=== PATIENT | male | born 1975 | race Caucasian/White ===

== ENCOUNTER 2018-10-22 06:13 | Day surgery (SDC) | payer BC ==
[~2018-10-22] VITALS: Ht 175.3 cm; Wt 78.2 kg
[2018-10-22 06:54] VITALS: BP 129/64
[2018-10-22] MEDS ORDERED: B NATURAL PO (07:12)
[2018-10-22] MEDS ORDERED: IBUP-24 PO (07:12)
[2018-10-22] MEDS ORDERED: FOLI1TAB16 PO (07:12)
[2018-10-22 08:40] VITALS: BP 129/64
[2018-10-22 08:45] VITALS: BP 114/59
[2018-10-22 09:00] VITALS: BP 116/64
[2018-10-22 09:46] LABS: TOTAL PROTEIN,BODY FLUID 5.6 G/DL
== END 2018-10-22 09:00 | disposition home or self-care (01) ==
LOC: SSTAY O 06:13
PROVIDERS: ATTEND Radiology Diagnostic Radiology
DX: J90 Pleural effusion, not elsewhere classified (principal); J98.11 Atelectasis; Z79.899 Other long term (current) drug therapy; Z87.01 Personal history of pneumonia (recurrent); Z72.89 Other problems related to lifestyle
CPT/HCPCS: 32555; 71045; 83615; 84157; 87070

== ENCOUNTER 2018-11-10 10:07 | Outpatient (CLI) | payer BC ==
[~2018-11-10 10:07] MED LIST: B NATURAL PO; FOLI1TAB16 PO; IBUP-24 PO
== END 2018-11-10 23:59 | disposition home or self-care (01) ==
LOC: 64 CT 10:07
PROVIDERS: ATTEND Internal Medicine Critical Care Medicine
DX: J90 Pleural effusion, not elsewhere classified (principal); J98.11 Atelectasis; M41.84 Other forms of scoliosis, thoracic region; Z87.891 Personal history of nicotine dependence
CPT/HCPCS: 71250

== ENCOUNTER 2018-12-09 08:31 | Outpatient (CLI) | payer OTHER | END 2018-12-09 23:59 | disposition home or self-care (01) | LOC: 64 CT 08:31 | PROVIDERS: ATTEND Surgery | DX: J90 Pleural effusion, not elsewhere classified (principal); Z87.891 Personal history of nicotine dependence | CPT/HCPCS: 71250 ==